=== PATIENT | female | born 1940 | race Caucasian/White ===

== ENCOUNTER 2019-01-30 12:37 | Emergency (ER) | payer MEDICARE, OTHER ==
[2019-01-30 13:04] VITALS: PULSE 71; TEMP 97.8; BMI 38.1
--- NOTE | 2019-01-30 13:21 | PDOC ---
History of Present Illness - General Chief Complaint: Injury Stated Complaint: INJURY TO NOSE Time Seen by Provider: 01/30/19 12:44 Past History - Past Medical History Allergies/Adverse Reactions: Allergies Allergy/AdvReac Type Severity Reaction Status Date / Time shellfish derived Allergy Severe Difficulty Verified 01/30/19 12:40 Breathing cephalexin [Cephalexin] Allergy Mild Verified 01/30/19 12:40 Home Medications: Ambulatory Orders Pravastatin Sodium [Pravachol -] 10 mg PO HS 08/25/13 Xarelto 15 mg PO DAILY 11/04/17 Diltiazem HCl [Diltiazem ER] 120 mg PO DAILY 01/30/19 Diphenhydramine HCl [Benadryl Capsules -] 25 mg PO Q8H PRN 01/30/19 Metoprolol Succinate 25 mg PO DAILY 01/30/19 Cardiac Disorders: Yes (A-FIB) COPD: No HTN: Yes Hypercholesterolemia: Yes - Psycho Social/Smoking Cessation Hx Smoking Status: No Smoking History: Never smoked Have you smoked in the past 12 months: No Number of Cigarettes Smoked Daily: 0 Information on smoking cessation initiated: No Hx Alcohol Use: No Drug/Substance Use Hx: No Substance Use Type: None *Physical Exam - Vital Signs Last Vital Signs Temp Pulse Resp BP Pulse Ox 97.8 F 71 16 152/87 96 01/30/19 12:39 01/30/19 12:39 01/30/19 12:39 01/30/19 12:39 01/30/19 12:39 Discharge - Discharge Information Condition: Stable - Follow up/Referral Referrals: Espinoza Vera MD [Primary Care Provider] - - Patient Discharge Instructions - Post Discharge Activity
--- NOTE | 2019-01-30 14:48 | PDOC ---
Documentation entered by Vijaya Ramírez SCRIBE, acting as scribe for Hang Menendez MD. Hang Menendez MD: This documentation has been prepared by the Darrell servin Xhesika, SCRIBE, under my direction and personally reviewed by me in its entirety. I confirm that the documentation accurately reflects all work, treatment, procedures, and medical decision making performed by me. History of Present Illness - General Chief Complaint: Injury Stated Complaint: INJURY TO NOSE Time Seen by Provider: 01/30/19 12:44 History Source: Patient Exam Limitations: No Limitations - History of Present Illness Initial Comments: 01/30/19 14:10 The patient is a 78 year old female with a significant PMH of high cholesterol , HTN, and A-fib who presents to the emergency department s/p nose injury 45 minutes prior to arrival. Patient states she was putting together a shelf, tried to take some pieces of the shelf apart when it hit her nose. Patient states she immediately felt dizzy, endorsed change in vision and nose pain. Patient denies LOC or hitting her head. Upon arrival patient denies any symptoms besides nose swelling. The patient denies chest pain, shortness of breath, headache and dizziness. Denies fever, chills, cough, nausea, vomiting, diarrhea and constipation. Allergies: cephalexin, shellfish derived PCP: Dr. Espinoza Vera Past History - Past Medical History Allergies/Adverse Reactions: Allergies Allergy/AdvReac Type Severity Reaction Status Date / Time shellfish derived Allergy Severe Difficulty Verified 01/30/19 12:40 Breathing cephalexin [Cephalexin] Allergy Mild Verified 01/30/19 12:40 Home Medications: Ambulatory Orders Pravastatin Sodium [Pravachol -] 10 mg PO HS 08/25/13 Xarelto 15 mg PO DAILY 11/04/17 Diltiazem HCl [Diltiazem ER] 120 mg PO DAILY 01/30/19 Diphenhydramine HCl [Benadryl Capsules -] 25 mg PO Q8H PRN 01/30/19 Metoprolol Succinate 25 mg PO DAILY 01/30/19 Cardiac Disorders: Yes (A-FIB) COPD: No HTN: Yes Hypercholesterolemia: Yes - Psycho Social/Smoking Cessation Hx Smoking Status: No Smoking History: Never smoked Have you smoked in the past 12 months: No Number of Cigarettes Smoked Daily: 0 Information on smoking cessation initiated: No Hx Alcohol Use: No Drug/Substance Use Hx: No Substance Use Type: None Review of Systems - Review of Systems Able to Perform ROS?: Yes Comments:: 01/30/19 14:11 GENERAL/CONSTITUTIONAL: No fever or chills. No weakness. HEAD, EYES, EARS, NOSE AND THROAT: No ear pain. + change in vision. + nose pain. + nose swelling. CARDIOVASCULAR: No chest pain or shortness of breath. RESPIRATORY: No cough, wheezing, or hemoptysis. GASTROINTESTINAL: No nausea, vomiting, diarrhea or constipation. GENITOURINARY: No dysuria, frequency, or change in urination. MUSCULOSKELETAL: No joint or muscle swelling or pain. No neck or back pain. SKIN: No rash NEUROLOGIC: + dizziness. No headache, vertigo, loss of consciousness, or change in strength/sensation. ENDOCRINE: No increased thirst. No abnormal weight change. HEMATOLOGIC/LYMPHATIC: No anemia, easy bleeding, or history of blood clots. ALLERGIC/IMMUNOLOGIC: No hives or skin allergy. *Physical Exam - Vital Signs Last Vital Signs Temp Pulse Resp BP Pulse Ox 97.8 F 71 16 152/87 96 01/30/19 12:39 01/30/19 12:39 01/30/19 12:39 01/30/19 12:39 01/30/19 12:39 - Physical Exam Comments: 01/30/19 14:15 GENERAL: Awake, alert, and fully oriented, in no acute distress HEAD: No signs of trauma EYES: PERRLA, EOMI, sclera anicteric, conjunctiva clear ENT: + nose swelling and TTP. + orbital bones intact. Auricles normal inspection , hearing grossly normal, nares patent, oropharynx clear without exudates. Moist mucosa NECK: Normal ROM, supple, no lymphadenopathy, JVD, or masses LUNGS: Breath sounds equal, clear to auscultation bilaterally. No wheezes, and no crackles HEART: Regular rate and rhythm, normal S1 and S2, no murmurs, rubs or gallops ABDOMEN: Soft, nontender, normoactive bowel sounds. No guarding, no rebound. No masses EXTREMITIES: Normal range of motion, no edema. No clubbing or cyanosis. No cords, erythema, or tenderness NEUROLOGICAL: Cranial nerves II through XII grossly intact. Normal speech, normal gait SKIN: Warm, Dry, normal turgor, no rashes or lesions noted. ED Treatment Course - RADIOLOGY Radiology Studies Ordered: Category Date Time Status NASAL BONES [RAD] Stat Radiology 01/30/19 13:14 Completed Discharge - Discharge Information Problems reviewed: Yes Clinical Impression/Diagnosis: Blunt trauma of nose Qualifiers: Encounter type: initial encounter Qualified Code(s): S09.92XA - Unspecified injury of nose, initial encounter Condition: Stable Disposition: HOME - Admission No - Follow up/Referral Referrals: Espinoza Vera MD [Primary Care Provider] - Ivan Conroy MD [Staff Physician] - - Patient Discharge Instructions Patient Printed Discharge Instructions: DI for Blunt Trauma Additional Instructions: Ice packing on and off every 30 minutes Claritin OTC once a day for 7 days If any more complaints follow 7up withh your doctor or Dr Conroy - Post Discharge Activity
== END 2019-01-30 15:08 | disposition home or self-care (01) ==
LOC: FER 12:37
DX: S09.92XA Unspecified injury of nose, initial encounter (principal)
CPT/HCPCS: 70160-TC-FY; 99281-25

== ENCOUNTER 2021-10-13 20:11 | Emergency (ER) | payer MEDICARE, OTHER ==
[2021-10-13 20:18] VITALS: BP 129/55; PULSE 59; TEMP 98; BMI 38.7
[2021-10-13] MEDS ORDERED: predniSONE 20 MG TABLET (UD) PO ONE (20:27)
[2021-10-13] MEDS ORDERED: predniSONE 20 MG TABLET (UD) ONE (20:37)
[2021-10-13] MEDS ORDERED: LIDOCAINE 5% TOPICAL PATCH TP ONE (21:18)
[2021-10-13] MEDS ORDERED: LIDOCAINE 5% TOPICAL PATCH ONE (21:21)
[2021-10-13] MEDS ORDERED: LIDOCAINE PATCH REMOVAL MC SCH (22:00)
== END 2021-10-13 21:49 | disposition home or self-care (01) ==
LOC: FER 20:11
DX: M25.511 Pain in right shoulder (principal)
CPT/HCPCS: 73030-TC-RT-FY; 99283-25

== ENCOUNTER 2022-04-13 10:47 | Emergency (ER) | payer MEDICARE, OTHER ==
[2022-04-13 11:00] VITALS: BP 154/67; PULSE 81; RESP 16; TEMP 97.9; BMI 27.4
[2022-04-13 12:01] LABS: HEMATOCRIT 33.5 % (32.4-45.2); HEMOGLOBIN 11.1 G/dL (10.7-15.3); MCH 23.3 pg (25.7-33.7); MCHC 33.3 g/dl (32.0-36.0); MEAN PLT VOLUME 7.6 fl (7.5-11.1); PLATELET COUNT 260.4 10^3/uL (134-434); RBC 4.78 10^6/uL (3.60-5.2); RDW 19.5 % (11.6-15.6); WHITE BLOOD COUNT 8.4 10^3/uL (4.0-10.8)
[2022-04-13 12:14] LABS: ALBUMIN 3.7 g/dl (3.4-5.0); BILIRUBIN,TOTAL 0.6 mg/dl (0.2-1); CALCIUM 8.4 mg/dl (8.5-10); CREATININE 0.6 mg/dl (0.55-1.3); TOT PROT 6.8 g/dl (6.4-8.2)
[2022-04-13] MEDS ORDERED: ACETAMINOPHEN 500 MG TABLET (FP) PO ONE (12:25)
[2022-04-13] MEDS ORDERED: ACETAMINOPHEN 500 MG TABLET (FP) ONE (12:26)
[2022-04-13] MEDS ORDERED: LIDOCAINE 5% TOPICAL PATCH TP ONE (12:39)
[2022-04-13 12:43] LABS: PLATELET ESTIMATE ADEQUATE
[2022-04-13] MEDS ORDERED: LIDOCAINE 5% TOPICAL PATCH ONE (12:47)
[2022-04-13 14:44] LABS: N-TERMINAL BNP 1725.4 pg/ml (5-450)
[2022-04-13] MEDS ORDERED: LIDOCAINE PATCH REMOVAL MC SCH (22:00)
== END 2022-04-13 13:24 | disposition home or self-care (01) ==
LOC: FER 10:47
DX: M79.605 Pain in left leg (principal)
CPT/HCPCS: 36415; 80053; 83880; 85027; 93971-TC; 99284-25

== ENCOUNTER 2022-12-11 01:05 | Emergency (ER) | payer MEDICARE, OTHER ==
[2022-12-11 01:12] VITALS: BMI 36.1
[2022-12-11] MEDS ORDERED: ONDANSETRON 4 MG/2 ML VIAL IVPUSH ONE (01:42)
[2022-12-11] MEDS ORDERED: ONDANSETRON 4 MG/2 ML VIAL ONE (01:54)
[2022-12-11 02:32] LABS: INR 1.92 (0.83-1.09); PROTHROMBIN TIME (PATIENT) 22.1 SEC (9.7-13.0)
[2022-12-11 02:35] LABS: ACTIVATED PTT 37.7 SECONDS (25.2-36.5)
[2022-12-11 02:42] LABS: POTASSIUM 4.7 mmol/L (3.5-5.1)
[2022-12-11 02:45] LABS: ALBUMIN 3.5 g/dl (3.4-5.0); BLOOD UREA NITROGEN 11.8 mg/dL (7-18); CALCIUM 8.4 mg/dL (8.5-10.1); MAGNESIUM 1.9 mg/dL (1.8-2.4)
[2022-12-11 02:48] LABS: CREATININE 0.7 mg/dL (0.55-1.3)
[2022-12-11 02:49] LABS: BILIRUBIN,TOTAL 0.2 mg/dL (0.2-1)
[2022-12-11 02:50] LABS: TOT PROT 7.4 g/dl (6.4-8.2)
[2022-12-11 03:10] LABS: BASO % 0.1 % (0-2.0); HEMATOCRIT 34.4 % (32.4-45.2); HEMOGLOBIN 10.8 GM/dL (10.7-15.3); LYMPH % 17.4 % (8-40); MCH 20.6 pg (25.7-33.7); MCHC 31.4 g/dl (32.0-36.0); MEAN CELL VOLUME 65.5 fl (80-96); MEAN PLT VOLUME 8.3 fl (7.5-11.1); MONO % 7.2 % (3.8-10.2); NEUT % 73.3 % (42.8-82.8); PLATELET COUNT 295 10^3/uL (134-434); RBC 5.26 M/mm3 (3.60-5.2); RDW 20.6 % (11.6-15.6); WHITE BLOOD COUNT 9.7 K/mm3 (4.0-10.0)
[2022-12-11 04:32] VITALS: BP 159/93; PULSE 90; RESP 16; TEMP 97.9
[2022-12-11 06:35] LABS: ANISOCYTOSIS 2+; MACROCYTOSIS 0; OVALOCYTE 2+
== END 2022-12-11 04:36 | disposition home or self-care (01) ==
LOC: JER 01:05
PROC: 3E033GC Introduction of Other Therapeutic Substance into Peripheral Vein, Percutaneous Approach (ICD-10-PCS; principal; 2022-12-11)
DX: R11.2 Nausea with vomiting, unspecified (principal); R10.9 Unspecified abdominal pain; R61 Generalized hyperhidrosis; R50.9 Fever, unspecified; J18.9 Pneumonia, unspecified organism; T50.905A Adverse effect of unspecified drugs, medicaments and biological substances, initial encounter; Z20.822 Contact with and (suspected) exposure to COVID-19
CPT/HCPCS: 0241U-QW; 36415; 71046-TC-FY; 80053; 83690; 83735; 83880; 84484; 85025; 85610; 85730; 93005; 93010; 99285-25

== ENCOUNTER 2024-03-31 15:22 | Observation (INO) | payer MEDICARE, OTHER ==
[2024-03-31 15:33] VITALS: BMI 33.6
[2024-03-31 16:30] LABS: BASO % 0.4 % (0-2.0); EOS % 1.2 % (0-4.5); HEMOGLOBIN 10.5 GM/dL (10.7-15.3); LYMPH % 24.7 % (8-40); MCH 20.2 pg (25.7-33.7); MCHC 30.1 g/dl (32.0-36.0); MEAN CELL VOLUME 66.9 fl (80-96); MEAN PLT VOLUME 6.7 fl (7.5-11.1); MONO % 9.2 % (3.8-10.2); NEUT % 64.5 % (42.8-82.8); PLATELET COUNT 326 10^3/uL (134-434); RBC 5.23 M/mm3 (3.60-5.2); RDW 22.4 % (11.6-15.6); WHITE BLOOD COUNT 7.6 K/mm3 (4.0-10.0)
[2024-03-31 16:32] LABS: ADD RBC MORPHOLOGY YES
[2024-03-31 16:45] LABS: INR 1.31 (0.83-1.09); PROTHROMBIN TIME (PATIENT) 14.7 SEC (9.7-13.0)
[2024-03-31 16:48] LABS: ACTIVATED PTT 33.8 SECONDS (25.2-36.5)
[2024-03-31 17:13] LABS: POTASSIUM 4.6 mmol/L (3.5-5.1)
[2024-03-31 17:15] LABS: ALBUMIN 3.6 g/dl (3.4-5.0); CALCIUM 9.2 mg/dL (8.5-10.1)
[2024-03-31 17:16] LABS: BLOOD UREA NITROGEN 14.2 mg/dL (7-18)
[2024-03-31 17:19] LABS: CREATININE 0.7 mg/dL (0.55-1.3)
[2024-03-31 17:20] LABS: BILIRUBIN,TOTAL 0.5 mg/dL (0.2-1); TOT PROT 7.4 g/dl (6.4-8.2)
[2024-03-31 17:24] LABS: N-TERMINAL BNP 1999.8 pg/ml (5-450)
[2024-03-31 17:31] LABS: ANISOCYTOSIS 3+; MACROCYTOSIS 0; OVALOCYTE 1+; TARGET CELLS 1+
[2024-03-31] MEDS: MELATONIN 5 MG TABLETS PO ONE (21:39)
[2024-04-01 01:13] LABS: URINE APPEARANCE Clear; URINE BILIRUBIN Negative (NEGATIVE); URINE COLOR Yellow; URINE GLUCOSE (UA) Negative (NEGATIVE); URINE KETONE Trace (NEGATIVE); URINE LEUK ESTERASE Negative (NEGATIVE); URINE NITRITE Negative (NEGATIVE); URINE PROTEIN 2+ (NEGATIVE); URINE UROBILINOGEN 0.2 mg/dL (0.2-1.0)
[2024-04-01] MEDS: ASPIRIN 81 MG CHEWABLE TABLETS PO ONE (05:54)
[2024-04-01] MEDS: INSULIN ASPART SLIDING SCALE (NOVOLOG) 1 VIAL SQ SCH (06:02)
[2024-04-01 07:52] LABS: BASO % 0.3 % (0-2.0); HEMATOCRIT 31.8 % (32.4-45.2); HEMOGLOBIN 9.8 GM/dL (10.7-15.3); LYMPH % 29.1 % (8-40); MCH 20.6 pg (25.7-33.7); MCHC 30.7 g/dl (32.0-36.0); MEAN CELL VOLUME 67.2 fl (80-96); MEAN PLT VOLUME 7.3 fl (7.5-11.1); MONO % 11.4 % (3.8-10.2); NEUT % 56.2 % (42.8-82.8); PLATELET COUNT 294 10^3/uL (134-434); RBC 4.74 M/mm3 (3.60-5.2); RDW 22.1 % (11.6-15.6)
[2024-04-01 07:57] LABS: ALBUMIN 3.2 g/dl (3.4-5.0); CALCIUM 8.7 mg/dL (8.5-10.1)
[2024-04-01 07:58] LABS: MAGNESIUM 1.7 mg/dL (1.8-2.4)
[2024-04-01 08:01] LABS: CREATININE 0.7 mg/dL (0.55-1.3); PHOSPHOROUS 3.5 mg/dL (2.5-4.9)
[2024-04-01 08:02] LABS: BILIRUBIN,TOTAL 0.5 mg/dL (0.2-1); TOT PROT 6.5 g/dl (6.4-8.2)
[2024-04-01 08:05] LABS: CHOLESTEROL 209 mg/dL (50-200)
[2024-04-01 08:07] LABS: LDL CHOLESTEROL (ONLY SJRH) 142 mg/dL (5-100)
[2024-04-01 08:09] LABS: HDL CHOLESTEROL 46 mg/dL (40-60)
[2024-04-01] MEDS: RIVAROXABAN 15 MG TABLET PO SCH (08:14)
[2024-04-01] MEDS: metoPROLOL SUCCINATE 25 MG TAB.SR.24H (FP) PO SCH (08:14)
[2024-04-01] MEDS ORDERED: ENOXAPARIN NA (PORCINE) 40 MG/0.4 ML DISP.SYRIN SQ SCH (10:00)
[2024-04-01] MEDS: PANTOPRAZOLE 40 MG TABLET PO SCH (12:56)
[2024-04-01 15:05] VITALS: TEMP 98.2
[2024-04-01 15:10] VITALS: BP 136/78; PULSE 84; RESP 20
[2024-04-01] MEDS ORDERED: ATORVASTATIN CA 40 MG TABLET (FP) PO SCH (22:00)
[2024-04-02] MEDS ORDERED: ASPIRIN 81 MG CHEWABLE TABLETS PO SCH (10:00)
== END 2024-04-01 15:32 | disposition home or self-care (01) ==
LOC: JER 15:22 → JERBED 17:55 → J4W 20:10
PROVIDERS: ADMIT Internal Medicine; ATTEND Internal Medicine
DX: R07.89 Other chest pain (principal); I11.0 Hypertensive heart disease with heart failure; R01.1 Cardiac murmur, unspecified; I48.91 Unspecified atrial fibrillation; G89.29 Other chronic pain; M54.50 Low back pain, unspecified; M62.81 Muscle weakness (generalized); Z91.013 Allergy to seafood; Z88.8 Allergy status to other drugs, medicaments and biological substances; Z79.01 Long term (current) use of anticoagulants
CPT/HCPCS: 36415; 71045-TC-FY; 74230-TC-FY; 80053; 80061; 81003; 82962; 83735; 83880; 84100; 84443; 84484; 85025; 85610; 85730; 92611-GN; 93005; 93010; 93306-TC; 97116-GP; 97161-GP; 99285-25; G0378

== ENCOUNTER 2024-07-18 16:09 | Inpatient (IN) | payer MEDICARE, OTHER ==
[2024-07-18 16:18] VITALS: BMI 32.1
[2024-07-18] MEDS ORDERED: FAMOTIDINE 20 MG/50 ML IVPB 20 MG/50 ML MG IVPB ONE (17:08)
[2024-07-18] MEDS ORDERED: METOCLOPRAMIDE HCL INJECTION 10 MG/2 ML VIAL ONE (17:27)
[2024-07-18] MEDS ORDERED: MAG HYDROX/AL HYDROX/SIMETH 30 ML UNIT-DOSE CUP ONE (17:28)
[2024-07-18] MEDS ORDERED: ACETAMINOPHEN INJECTION 100 ML ONE (17:28)
[2024-07-18] MEDS: MAG HYDROX/AL HYDROX/SIMETH 30 ML UNIT-DOSE CUP PO ONE (18:08)
[2024-07-18] MEDS: ACETAMINOPHEN 1000 MG/100 ML BAG IVPB ONE (18:08)
[2024-07-18 18:11] LABS: VENOUS BASE EXCESS 2.9 mmol/L (-2-2); VENOUS O2 SATURATION 58.3 % (70-80); VENOUS PCO2 46.3 mmHg (38-52); VENOUS PH 7.402 (7.310-7.410)
[2024-07-18 18:14] LABS: ABSOLUTE IMMATURE GRANULOCYTES 0.03 x10^3/uL (0.0-0.031); BASOPHILS # 0.01 x10^3/uL (0.01-0.08); EOSINOPHIL % 1.1 % (0.7-5.8); EOSINOPHILS # 0.09 x10^3/uL (0.04-0.36); HEMATOCRIT 32.3 % (34.1-44.9); HEMOGLOBIN 9.2 g/dL (11.2-15.7); MCHC 28.5 g/dl (32.2-35.5); MEAN CELL VOLUME 67.4 fl (79.4-94.8); MONOCYTE # 0.79 x10^3/uL (0.24-0.86); MONOCYTE % 9.8 % (4.7-12.5); PLATELET COUNT 358 x10^3/uL (182-369); RDW 20.9 % (12.5-17.0)
[2024-07-18 18:19] LABS: INR 1.52 (0.83-1.09); PROTHROMBIN TIME (PATIENT) 16.7 SEC (9.7-13.0)
[2024-07-18] MEDS: METOCLOPRAMIDE HCL INJECTION 10 MG/2 ML VIAL IVPB ONE (18:20)
[2024-07-18 18:22] LABS: ACTIVATED PTT 31.4 SECONDS (25.2-36.5)
[2024-07-18 18:41] LABS: POTASSIUM 4.6 mmol/L (3.5-5.1)
[2024-07-18 18:43] LABS: ALBUMIN 3.6 g/dl (3.4-5.0); BLOOD UREA NITROGEN 13.8 mg/dL (7-18)
[2024-07-18 18:46] LABS: CREATININE 0.6 mg/dL (0.55-1.3)
[2024-07-18 18:48] LABS: TOT PROT 7.3 g/dl (6.4-8.2)
[2024-07-18 18:52] LABS: N-TERMINAL BNP 2839.2 pg/ml (5-450)
[2024-07-18] MEDS ORDERED: methylPREDNISolone NA SUCC 125 MG/2 ML VIAL ONE (19:49)
[2024-07-18] MEDS: methylPREDNISolone NA SUCC 125 MG/2 ML VIAL IVPB ONE (20:16)
[2024-07-19] MEDS ORDERED: PANTOPRAZOLE 40 MG TABLET PO ONE (00:45)
[2024-07-19] MEDS ORDERED: ENOXAPARIN NA (PORCINE) 40 MG/0.4 ML DISP.SYRIN SQ ONE (00:45)
[2024-07-19] MEDS: PANTOPRAZOLE 40 MG TABLET PO SCH (01:09)
[2024-07-19] MEDS: ENOXAPARIN NA (PORCINE) 80 MG/0.8 ML DISP.SYRIN SQ SCH (01:09)
[2024-07-19] MEDS: AMPICILLIN NA/SULBACTAM NA 3 GM in SODIUM CHLORIDE 100 ML IVPB ONE (01:10)
[2024-07-19] MEDS ORDERED: ATORVASTATIN CA 40 MG TABLET (FP) ONE (02:03)
[2024-07-19] MEDS: ATORVASTATIN CA 40 MG TABLET (FP) PO SCH ×2 (03:02→21:50)
[2024-07-19 07:12] LABS: INR 1.42 (0.83-1.09); PROTHROMBIN TIME (PATIENT) 15.6 SEC (9.7-13.0)
[2024-07-19 07:30] LABS: POTASSIUM 4.6 mmol/L (3.5-5.1)
[2024-07-19 07:44] LABS: ALBUMIN 3.4 g/dl (3.4-5.0); BLOOD UREA NITROGEN 14.2 mg/dL (7-18)
[2024-07-19 07:48] LABS: CREATININE 0.9 mg/dL (0.55-1.3)
[2024-07-19 07:49] LABS: ABSOLUTE IMMATURE GRANULOCYTES 0.03 x10^3/uL (0.0-0.031); BILIRUBIN,TOTAL 0.7 mg/dL (0.2-1); HEMATOCRIT 31.7 % (34.1-44.9); MCHC 28.4 g/dl (32.2-35.5); MEAN CELL VOLUME 67.3 fl (79.4-94.8); MEAN PLT VOLUME 9.3 fl (9.4-12.3); MONOCYTE # 0.03 x10^3/uL (0.24-0.86); MONOCYTE % 0.6 % (4.7-12.5); PLATELET COUNT 339 x10^3/uL (182-369); RDW 20.6 % (12.5-17.0)
[2024-07-19] MEDS: metoPROLOL SUCCINATE 25 MG TAB.SR.24H (FP) PO SCH (09:40)
[2024-07-19] MEDS: FUROSEMIDE 40 MG/4 ML INJECTABLE VIAL IVPUSH SCH (09:40)
[2024-07-19] MEDS: LISINOPRIL 5 MG TABLET PO SCH (13:54)
[2024-07-19] MEDS: EMPAGLIFLOZIN (JARDIANCE) 10 MG TABLET PO SCH (13:54)
[2024-07-19] MEDS: POLYETHYLENE GLYCOL (HEALTHYLAX) 3350 17 GM PACKET PO SCH (14:09)
[2024-07-19 16:31] LABS: Reticulocyte % 2.07 % (0.5-1.7)
[2024-07-19] MEDS: MELATONIN 5 MG TABLETS PO ONE (21:49)
[2024-07-20] MEDS: EMPAGLIFLOZIN (JARDIANCE) 10 MG TABLET PO SCH (06:23)
[2024-07-20 11:05] LABS: ABSOLUTE IMMATURE GRANULOCYTES 0.05 x10^3/uL (0.0-0.031); BASOPHILS # 0.02 x10^3/uL (0.01-0.08); EOSINOPHIL % 0.1 % (0.7-5.8); EOSINOPHILS # 0.01 x10^3/uL (0.04-0.36); HEMATOCRIT 30.5 % (34.1-44.9); HEMOGLOBIN 8.4 g/dL (11.2-15.7); MCHC 27.5 g/dl (32.2-35.5); MEAN CELL VOLUME 67.3 fl (79.4-94.8); MEAN PLT VOLUME 9.1 fl (9.4-12.3); MONOCYTE # 1.25 x10^3/uL (0.24-0.86); MONOCYTE % 9.7 % (4.7-12.5); PLATELET COUNT 361 x10^3/uL (182-369); RDW 20.5 % (12.5-17.0)
[2024-07-20 11:40] LABS: POTASSIUM 4.4 mmol/L (3.5-5.1)
[2024-07-20 11:43] LABS: ALBUMIN 3.2 g/dl (3.4-5.0); BLOOD UREA NITROGEN 21.8 mg/dL (7-18); CALCIUM 8.9 mg/dL (8.5-10.1); MAGNESIUM 2.2 mg/dL (1.8-2.4)
[2024-07-20 11:46] LABS: BILIRUBIN,TOTAL 0.5 mg/dL (0.2-1); CREATININE 0.8 mg/dL (0.55-1.3)
[2024-07-20 11:48] LABS: TOT PROT 6.7 g/dl (6.4-8.2)
[2024-07-20] MEDS: IRON SUCROSE INJECTION 200 MG in SODIUM CHLORIDE 100 ML IVPB ONE (12:28)
[2024-07-20] MEDS: FUROSEMIDE 40 MG/4 ML INJECTABLE VIAL IVPUSH SCH (15:31)
[2024-07-20] MEDS: POLYETHYLENE GLYCOL (HEALTHYLAX) 3350 17 GM PACKET PO SCH (22:15)
[2024-07-20] MEDS: traZODone HCL 50 MG TABLET (FP) PO PRN (22:39)
[2024-07-21 07:49] LABS: ABSOLUTE IMMATURE GRANULOCYTES 0.04 x10^3/uL (0.0-0.031); BASOPHILS # 0.01 x10^3/uL (0.01-0.08); EOSINOPHIL % 1.6 % (0.7-5.8); EOSINOPHILS # 0.14 x10^3/uL (0.04-0.36); HEMATOCRIT 34.1 % (34.1-44.9); HEMOGLOBIN 9.5 g/dL (11.2-15.7); MCHC 27.9 g/dl (32.2-35.5); MEAN CELL VOLUME 66.7 fl (79.4-94.8); MEAN PLT VOLUME 8.4 fl (9.4-12.3); MONOCYTE # 0.84 x10^3/uL (0.24-0.86); MONOCYTE % 9.8 % (4.7-12.5); PLATELET COUNT 357 x10^3/uL (182-369); RDW 20.8 % (12.5-17.0)
[2024-07-21 08:16] LABS: POTASSIUM 3.7 mmol/L (3.5-5.1)
[2024-07-21 08:34] LABS: CALCIUM 8.7 mg/dL (8.5-10.1)
[2024-07-21 08:35] LABS: ALBUMIN 3.4 g/dl (3.4-5.0); BLOOD UREA NITROGEN 21.8 mg/dL (7-18); MAGNESIUM 1.9 mg/dL (1.8-2.4)
[2024-07-21 08:38] LABS: CREATININE 0.8 mg/dL (0.55-1.3)
[2024-07-21 08:40] LABS: BILIRUBIN,TOTAL 0.6 mg/dL (0.2-1)
[2024-07-21] MEDS: IRON SUCROSE INJECTION 200 MG in SODIUM CHLORIDE 100 ML IVPB ONE (10:58)
[2024-07-21 10:59] LABS: PHOSPHOROUS 4.6 mg/dL (2.5-4.9)
[2024-07-21] MEDS: POTASSIUM CHLORIDE ORAL LIQUID 20 MEQ/15 ML PO ONE (12:24)
[2024-07-21] MEDS: MELATONIN 5 MG TABLETS PO ONE (22:23)
[2024-07-22 07:59] LABS: POTASSIUM 4.1 mmol/L (3.5-5.1)
[2024-07-22 08:03] LABS: BLOOD UREA NITROGEN 18.5 mg/dL (7-18)
[2024-07-22 08:05] LABS: ALBUMIN 3.4 g/dl (3.4-5.0); CALCIUM 8.7 mg/dL (8.5-10.1)
[2024-07-22 08:07] LABS: CREATININE 0.8 mg/dL (0.55-1.3)
[2024-07-22 08:08] LABS: BILIRUBIN,TOTAL 0.7 mg/dL (0.2-1); TOT PROT 6.8 g/dl (6.4-8.2)
[2024-07-22] MEDS: POLYETHYLENE GLYCOL (HEALTHYLAX) 3350 17 GM PACKET PO SCH (09:07)
[2024-07-22] MEDS: ENOXAPARIN NA (PORCINE) 80 MG/0.8 ML DISP.SYRIN SQ SCH (09:07)
[2024-07-22 09:37] LABS: ABSOLUTE IMMATURE GRANULOCYTES 0.02 x10^3/uL (0.0-0.031); BASOPHILS # 0.01 x10^3/uL (0.01-0.08); EOSINOPHIL % 2.4 % (0.7-5.8); EOSINOPHILS # 0.17 x10^3/uL (0.04-0.36); HEMATOCRIT 34.2 % (34.1-44.9); HEMOGLOBIN 9.9 g/dL (11.2-15.7); MCHC 28.9 g/dl (32.2-35.5); MEAN CELL VOLUME 67.7 fl (79.4-94.8); MEAN PLT VOLUME 9.2 fl (9.4-12.3); MONOCYTE # 1.06 x10^3/uL (0.24-0.86); MONOCYTE % 14.7 % (4.7-12.5); PLATELET COUNT 359 x10^3/uL (182-369); RDW 20.8 % (12.5-17.0)
[2024-07-22] MEDS: IRON SUCROSE INJECTION 200 MG in SODIUM CHLORIDE 100 ML IVPB ONE (10:13)
[2024-07-23 07:23] LABS: ABSOLUTE IMMATURE GRANULOCYTES 0.04 x10^3/uL (0.0-0.031); BASOPHILS # 0.03 x10^3/uL (0.01-0.08); EOSINOPHILS # 0.24 x10^3/uL (0.04-0.36); HEMATOCRIT 36.4 % (34.1-44.9); MCHC 27.5 g/dl (32.2-35.5); MEAN CELL VOLUME 68.3 fl (79.4-94.8); MEAN PLT VOLUME 8.9 fl (9.4-12.3); MONOCYTE # 1.25 x10^3/uL (0.24-0.86); MONOCYTE % 15.8 % (4.7-12.5); PLATELET COUNT 342 x10^3/uL (182-369); RDW 21.6 % (12.5-17.0)
[2024-07-23 07:43] LABS: INR 1.23 (0.83-1.09); PROTHROMBIN TIME (PATIENT) 13.5 SEC (9.7-13.0)
[2024-07-23 07:44] LABS: ALBUMIN 3.3 g/dl (3.4-5.0); CALCIUM 8.9 mg/dL (8.5-10.1); MAGNESIUM 2.1 mg/dL (1.8-2.4)
[2024-07-23 07:47] LABS: CREATININE 0.7 mg/dL (0.55-1.3)
[2024-07-23 07:49] LABS: BILIRUBIN,TOTAL 0.4 mg/dL (0.2-1); TOT PROT 6.6 g/dl (6.4-8.2)
[2024-07-23] MEDS: EZETIMIBE 10 MG TABLET (FP) PO SCH (14:03)
[2024-07-23] MEDS: PEG 3350/NA SULF BICARB CL/KCL 4000 ML SOLN.RECON PO ONE (16:40)
[2024-07-23] MEDS: BISACODYL 5 MG TABLET.DR (FP) PO ONE (16:40)
[2024-07-24 07:58] LABS: ABSOLUTE IMMATURE GRANULOCYTES 0.07 x10^3/uL (0.0-0.031); BASOPHILS # 0.02 x10^3/uL (0.01-0.08); EOSINOPHILS # 0.23 x10^3/uL (0.04-0.36); HEMATOCRIT 38.7 % (34.1-44.9); HEMOGLOBIN 10.8 g/dL (11.2-15.7); MCHC 27.9 g/dl (32.2-35.5); MEAN CELL VOLUME 67.9 fl (79.4-94.8); MEAN PLT VOLUME 8.8 fl (9.4-12.3); MONOCYTE # 1.13 x10^3/uL (0.24-0.86); MONOCYTE % 14.6 % (4.7-12.5); PLATELET COUNT 354 x10^3/uL (182-369); RDW 22.3 % (12.5-17.0)
[2024-07-24 08:16] LABS: POTASSIUM 3.5 mmol/L (3.5-5.1)
[2024-07-24 08:19] LABS: INR 1.22 (0.83-1.09); PROTHROMBIN TIME (PATIENT) 13.4 SEC (9.7-13.0)
[2024-07-24 08:26] LABS: BLOOD UREA NITROGEN 14.7 mg/dL (7-18)
[2024-07-24 08:28] LABS: ALBUMIN 3.5 g/dl (3.4-5.0); MAGNESIUM 2.1 mg/dL (1.8-2.4)
[2024-07-24 08:31] LABS: CREATININE 0.7 mg/dL (0.55-1.3)
[2024-07-24 08:33] LABS: BILIRUBIN,TOTAL 0.8 mg/dL (0.2-1); TOT PROT 6.9 g/dl (6.4-8.2)
[2024-07-24 13:56] VITALS: RESP 18
[2024-07-24 18:50] VITALS: BP 95/50; PULSE 75; TEMP 97.5
[2024-07-25] MEDS ORDERED: FUROSEMIDE 40 MG TABLET (FP) PO SCH (10:00)
== END 2024-07-24 19:32 | disposition home or self-care (01) | DRG 291 ==
LOC: JER 16:09 → JERBED 17:06 → INTOOBSV 23:17 → OBSVTOIN 23:17 → J4W 07-19 02:35 → OBSVTOIN 07-21 10:23
PROVIDERS: ADMIT Hospitalist; ATTEND Nurse Practitioner Family
PROC: 0DB68ZX Excision of Stomach, Via Natural or Artificial Opening Endoscopic, Diagnostic (ICD-10-PCS; 2024-07-24)
PROC: 0DJD8ZZ Inspection of Lower Intestinal Tract, Via Natural or Artificial Opening Endoscopic (ICD-10-PCS; 2024-07-24)
PROC: 0DB98ZX Excision of Duodenum, Via Natural or Artificial Opening Endoscopic, Diagnostic (ICD-10-PCS; principal; 2024-07-24 14:30)
DX: I11.0 Hypertensive heart disease with heart failure (principal); I50.33 Acute on chronic diastolic (congestive) heart failure; I47.20 Ventricular tachycardia, unspecified; E11.9 Type 2 diabetes mellitus without complications; I27.20 Pulmonary hypertension, unspecified; E66.01 Morbid (severe) obesity due to excess calories; I71.40 Abdominal aortic aneurysm, without rupture, unspecified; D50.9 Iron deficiency anemia, unspecified; I48.0 Paroxysmal atrial fibrillation; E78.5 Hyperlipidemia, unspecified; K44.9 Diaphragmatic hernia without obstruction or gangrene; K57.90 Diverticulosis of intestine, part unspecified, without perforation or abscess without bleeding; Z68.32 Body mass index [BMI] 32.0-32.9, adult
CPT/HCPCS: 0241U-QW; 36415; 71046-TC-FY; 71275-TC; 74174-TC; 76705-TC; 80053; 80061; 82728; 82803; 83036; 83540; 83550; 83605; 83690; 83735; 83880; 84100; 84443; 84484; 85025; 85610; 85730; 86850; 86900; 86901; 88305-TC; 88342-TC; 93005; 93010; 93306-TC; 99285-25; G0378; J0131; J1756; Q9967

== ENCOUNTER 2024-09-01 19:18 | Inpatient (IN) | payer MEDICARE, OTHER ==
[2024-09-01] MEDS ORDERED: ACETAMINOPHEN 325 MG TABLET (FP) ONE (20:20)
[2024-09-01] MEDS ORDERED: FAMOTIDINE 20 MG/50 ML IVPB 20 MG/50 ML MG IVPB ONE (20:20)
[2024-09-01] MEDS: FAMOTIDINE 20 MG/50 ML IVPB 20 MG/50 ML MG IVPB ONE (20:30)
[2024-09-01] MEDS: ACETAMINOPHEN 325 MG TABLET (FP) PO ONE (20:35)
[2024-09-01 20:53] LABS: BASOPHILS # 0.02 x10^3/uL (0.01-0.08)
[2024-09-01 20:57] LABS: EOSINOPHIL % 0.6 % (0.7-5.8); EOSINOPHILS # 0.05 x10^3/uL (0.04-0.36)
[2024-09-01 21:00] LABS: INR 1.45 (0.83-1.09); PROTHROMBIN TIME (PATIENT) 15.9 SEC (9.7-13.0)
[2024-09-01 21:02] LABS: ABSOLUTE IMMATURE GRANULOCYTES 0.04 x10^3/uL (0.0-0.031); ACTIVATED PTT 35.6 SECONDS (25.2-36.5); HEMATOCRIT 43.2 % (34.1-44.9); HEMOGLOBIN 13.2 g/dL (11.2-15.7); MCHC 30.6 g/dl (32.2-35.5); MEAN CELL VOLUME 78.3 fl (79.4-94.8); MEAN PLT VOLUME 9.2 fl (9.4-12.3); MONOCYTE % 9.9 % (4.7-12.5); PLATELET COUNT 208 x10^3/uL (182-369)
[2024-09-01 21:21] LABS: POTASSIUM 4.7 mmol/L (3.5-5.1)
[2024-09-01 21:25] LABS: ALBUMIN 3.8 g/dl (3.4-5.0); BLOOD UREA NITROGEN 13.1 mg/dL (7-18); CALCIUM 9.7 mg/dL (8.5-10.1)
[2024-09-01 21:29] LABS: CREATININE 0.8 mg/dL (0.55-1.3)
[2024-09-01 21:30] LABS: BILIRUBIN,TOTAL 0.9 mg/dL (0.2-1); TOT PROT 7.5 g/dl (6.4-8.2)
[2024-09-01 21:33] LABS: N-TERMINAL BNP 5152.6 pg/ml (5-450)
[2024-09-02] MEDS ORDERED: methylPREDNISolone NA SUCC 40 MG/1 ML VIAL ONE (02:35)
[2024-09-02] MEDS: FUROSEMIDE 40 MG/4 ML INJECTABLE VIAL IVPUSH ONE (02:59)
[2024-09-02] MEDS: methylPREDNISolone NA SUCC 125 MG/2 ML VIAL IVPB SCH (02:59)
[2024-09-02] MEDS: ASPIRIN 81 MG CHEWABLE TABLETS PO ONE (02:59)
[2024-09-02] MEDS ORDERED: methylPREDNISolone NA SUCC 40 MG/1 ML VIAL IVPUSH SCH (03:24)
[2024-09-02 04:53] VITALS: BMI 32.1
[2024-09-02] MEDS: INSULIN ASPART SLIDING SCALE (NOVOLOG) 1 VIAL SQ SCH (06:26)
[2024-09-02] MEDS: EMPAGLIFLOZIN (JARDIANCE) 10 MG TABLET PO SCH (06:43)
[2024-09-02] MEDS: ALBUTEROL SO4 2.5/IPRATROPIUM 0.5 INH SOL 3 ML VIAL.NEB. NEB SCH (07:42)
[2024-09-02 08:33] LABS: POTASSIUM 3.9 mmol/L (3.5-5.1)
[2024-09-02 08:37] LABS: ALBUMIN 3.8 g/dl (3.4-5.0); BLOOD UREA NITROGEN 13.8 mg/dL (7-18); CALCIUM 9.3 mg/dL (8.5-10.1); MAGNESIUM 2.2 mg/dL (1.8-2.4)
[2024-09-02 08:40] LABS: CREATININE 0.7 mg/dL (0.55-1.3)
[2024-09-02 08:41] LABS: PHOSPHOROUS 5.3 mg/dL (2.5-4.9)
[2024-09-02 08:42] LABS: BILIRUBIN,TOTAL 0.8 mg/dL (0.2-1); TOT PROT 7.4 g/dl (6.4-8.2)
[2024-09-02 09:50] LABS: ABSOLUTE IMMATURE GRANULOCYTES 0.05 x10^3/uL (0.0-0.031); BASOPHILS # 0.01 x10^3/uL (0.01-0.08); EOSINOPHIL % 0.1 % (0.7-5.8); EOSINOPHILS # 0.01 x10^3/uL (0.04-0.36); MCHC 30.2 g/dl (32.2-35.5); MEAN CELL VOLUME 78.2 fl (79.4-94.8); MEAN PLT VOLUME 9.2 fl (9.4-12.3); MONOCYTE # 0.17 x10^3/uL (0.24-0.86); MONOCYTE % 2.4 % (4.7-12.5); PLATELET COUNT 191 x10^3/uL (182-369)
[2024-09-02] MEDS ORDERED: RIVAROXABAN 10 MG TABLET PO SCH (10:00)
[2024-09-02] MEDS: FUROSEMIDE 40 MG TABLET (FP) PO SCH (10:19)
[2024-09-02] MEDS: LISINOPRIL 5 MG TABLET PO SCH (10:19)
[2024-09-02] MEDS: FERROUS SO4 325 MG TABLET (FP) PO SCH (10:19)
[2024-09-02] MEDS: PANTOPRAZOLE 40 MG TABLET PO SCH (10:19)
[2024-09-02] MEDS: EZETIMIBE 10 MG TABLET (FP) PO SCH (10:19)
[2024-09-02] MEDS: predniSONE 20 MG TABLET (UD) PO SCH (12:11)
[2024-09-02] MEDS ORDERED: RIVAROXABAN 15 MG TABLET PO SCH (18:00)
[2024-09-02] MEDS: ATORVASTATIN CA 40 MG TABLET (FP) PO SCH (21:26)
[2024-09-03 07:36] LABS: POTASSIUM 4.2 mmol/L (3.5-5.1)
[2024-09-03 07:46] LABS: ALBUMIN 3.4 g/dl (3.4-5.0); CALCIUM 9.3 mg/dL (8.5-10.1)
[2024-09-03 07:47] LABS: BLOOD UREA NITROGEN 20.3 mg/dL (7-18)
[2024-09-03 07:48] LABS: CREATININE 0.6 mg/dL (0.55-1.3)
[2024-09-03 07:51] LABS: BILIRUBIN,TOTAL 0.5 mg/dL (0.2-1); TOT PROT 6.8 g/dl (6.4-8.2)
[2024-09-03 08:53] LABS: HEMATOCRIT 40.2 % (34.1-44.9); HEMOGLOBIN 12.1 g/dL (11.2-15.7); MCHC 30.1 g/dl (32.2-35.5); MEAN CELL VOLUME 79.4 fl (79.4-94.8); MEAN PLT VOLUME 9.1 fl (9.4-12.3); PLATELET COUNT 216 x10^3/uL (182-369)
[2024-09-03] MEDS: guaiFENesin/D-METHORPHAN HB 10 ML UNIT-DOSE CUPS PO ONE (10:12)
[2024-09-03 13:56] VITALS: RESP 16
[2024-09-03 14:59] VITALS: BP 122/65; PULSE 100; TEMP 97.5
== END 2024-09-03 22:20 | disposition short-term general hospital (02) | DRG 291 ==
LOC: JER 19:18 → JERBED 09-02 00:03 → OBSVTOIN 09-02 02:15 → J4S 09-02 04:15
PROVIDERS: ADMIT Hospitalist; ATTEND Internal Medicine
DX: I11.0 Hypertensive heart disease with heart failure (principal); I50.33 Acute on chronic diastolic (congestive) heart failure; J96.01 Acute respiratory failure with hypoxia; I20.2 Refractory angina pectoris; E78.5 Hyperlipidemia, unspecified; E11.9 Type 2 diabetes mellitus without complications; I27.20 Pulmonary hypertension, unspecified; J45.909 Unspecified asthma, uncomplicated; I48.0 Paroxysmal atrial fibrillation; E66.9 Obesity, unspecified; Z68.32 Body mass index [BMI] 32.0-32.9, adult; K57.90 Diverticulosis of intestine, part unspecified, without perforation or abscess without bleeding; K44.9 Diaphragmatic hernia without obstruction or gangrene; F41.8 Other specified anxiety disorders
CPT/HCPCS: 0241U-QW; 36415; 71046-TC-FY; 80053; 82962; 83690; 83735; 83880; 84100; 84484; 85025; 85027; 85610; 85730; 93005; 93010; 93971-TC; 94640; 94761; 97116-GP; 97161-GP; 99285-25; G0378

== ENCOUNTER 2024-10-23 08:09 | Emergency (ER) | payer MEDICARE, OTHER ==
[2024-10-23 08:17] VITALS: BP 160/90; PULSE 90; RESP 20; TEMP 97.9; BMI 31.7
[2024-10-23] MEDS ORDERED: ACETAMINOPHEN 500 MG TABLET (FP) ONE (09:00)
[2024-10-23] MEDS: ACETAMINOPHEN 500 MG TABLET (FP) PO ONE (09:13)
[2024-10-23] MEDS ORDERED: CEFAZOLIN 1 GM/D5W 1 GM/50 ML BAG ONE (11:16)
[2024-10-23] MEDS: CEFAZOLIN 1 GM/D5W 1 GM/50 ML BAG IVPB ONE (11:26)
[2024-10-23] MEDS ORDERED: CLINDAMYCIN 900 MG PREMIX IVPB 900 MG/50 ML BAG IVPB ONE (11:30)
[2024-10-23] MEDS ORDERED: DIPHTH,PERTUSS(ACELL),TET 0.5 ML DISP.SYRIN IM ONE (12:10)
[2024-10-23] MEDS: DIPHTH,PERTUSS(ACELL),TET 0.5 ML DISP.SYRIN IM ONE (12:22)
== END 2024-10-23 12:27 | disposition home or self-care (01) ==
LOC: JERFT 08:09
PROC: 0HQGXZZ Repair Left Hand Skin, External Approach (ICD-10-PCS; principal; 2024-10-23)
PROC: 3E033GC Introduction of Other Therapeutic Substance into Peripheral Vein, Percutaneous Approach (ICD-10-PCS; 2024-10-23)
PROC: 3E0234Z Introduction of Serum, Toxoid and Vaccine into Muscle, Percutaneous Approach (ICD-10-PCS; 2024-10-23)
DX: S62.627B Displaced fracture of middle phalanx of left little finger, initial encounter for open fracture (principal); Z23 Encounter for immunization; W23.2XXA Caught, crushed, jammed or pinched between a moving and stationary object, initial encounter
CPT/HCPCS: 12001-25; 73140-TC-LT-FY; 90471; 90715; 96365; 96371; 99284-25